=== PATIENT | male | born 1975 | race Caucasian/White ===

== ENCOUNTER 2018-01-29 12:15 | Emergency (ER) | payer OTHER ==
[~2018-01-29] VITALS: Ht 177.8 cm; Wt 106.6 kg
[2018-01-29] MEDS ORDERED: FLUOXETINE HCL40 MG PO (12:21)
[2018-01-29] MEDS ORDERED: COZAAR 25 MG TA25 MG PO (12:21)
[2018-01-29 12:39] LABS: ABSOLUTE BASOPHILS 0.1 thou/uL (0.0-0.2); ABSOLUTE EOSINOPHILS 0.3 thou/uL (0.0-0.7); ABSOLUTE LYMPHOCYTES 1.1 thou/uL (0.8-5.3); ABSOLUTE MONOCYTES 0.6 thou/uL (0.0-1.2); ABSOLUTE NEUTROPHILS 4.4 thou/uL (1.6-8.1); BASOPHILS 0.9 %; EOSINOPHILS 4.4 %; HEMATOCRIT 48.2 % (42.0-52.0); HEMOGLOBIN 16.6 gm/dL (14.0-18.0); LYMPHOCYTES 16.9 %; MCH 33.1 pg (26.0-34.0); MCHC 34.5 g/dL (28.0-37.0); MCV 95.9 fL (80.0-100.0); MONOCYTES 9.9 %; MPV 7.4 fl. (7.2-11.1); NUCLEATED RBCS 0 /100WBC; PLATELET COUNT* 247 thou/uL (150-400); POLYS 67.9 %; RBC 5.02 mil/uL (4.50-6.00); RDW-CV 12.9 % (10.5-14.5); WBC 6.5 thou/uL (4.0-11.0)
[2018-01-29 12:50] LABS: ANION GAP 9 mmol/L (7-16); BUN 7 mg/dL (7-18); CALCIUM 10.5 mg/dL (8.5-10.1); CHLORIDE 98 mmol/L (98-107); CO2 29 mmol/L (21-32); CREATININE 1.1 mg/dL (0.6-1.3); GLUCOSE 108 mg/dL (70-99); POTASSIUM 4.1 mmol/L (3.5-5.1); SODIUM 136 mmol/L (136-145)
[2018-01-29 12:52] LABS: APTT 27.3 Seconds (25.0-31.3); INR 1.1; PROTIME 11.6 Seconds (9.20-11.50)
[2018-01-29 12:57] LABS: ALBUMIN 3.9 g/dL (3.4-5.0); ALKALINE PHOSPHATASE 52 U/L (46-116); LIPASE 130 U/L (73-393); SGOT 54 U/L (15-37); SGPT 91 U/L (30-65); TOTAL BILIRUBIN 0.8 mg/dL (<0.1-1.0); TOTAL PROTEIN 7.2 g/dL (6.4-8.2); TROPONIN-I LEVEL <0.06 ng/mL (<0.06)
--- NOTE | 2018-01-29 14:19 | EKG ---
[place] [address] ELECTROCARDIOGRAM REPORT Name: CARYL AWAD Room: [facility]#: [id number] Admission: 01/29/18 Attend Phys: Discharge: Date of : 75 Report #: [id number] THIS REPORT FOR: //name// [facility] ED Test Date: 2018-01-29 Test Time: 12:21:09 Pat Name: CARYL AWAD Department: Room: Gender: Web Search Evaluator: Calixto CRAIG : 1975 Requested By: Lou Hernandez Order Number: [id number] MD: Param Musa Measurements Intervals [place] Rate: 94 P: 48 ND: 173 QRS: 78 QRSD: 101 T: 17 QT: 342 QTc: 428 Interpretive Statements Sinus rhythm Baseline wander in lead(s) V2 No previous ECG available for comparison Electronically Signed On 01-29-2018 14:19:10 CDT by Param Musa [email or web address] <ELECTRONICALLY SIGNED> By: Param Musa MD, FACC 01/29/18 1419 1221 1221 Param Musa MD, FACC /EPI
[2018-01-29] MEDS ORDERED: PRILOSEC 20 MG20 MG PO (14:46)
[2018-01-29] MEDS ORDERED: CARAFATE 1 GM TA1 GM PO (14:46)
[2018-01-29 15:12] VITALS: BP 121/85
== END 2018-01-29 15:12 | disposition home or self-care (01) ==
LOC: M.ERS 12:15
PROVIDERS: Personal Emergency Response Attendant
DX: R07.89 Other chest pain (principal); I10 Essential (primary) hypertension; F41.9 Anxiety disorder, unspecified

== ENCOUNTER → 2018-03-10 | Outpatient (CLI) | payer OTHER ==
[~2018-03-10] MED LIST: CARAFATE 1 GM TA1 GM PO; COZAAR 25 MG TA25 MG PO; FLUOXETINE HCL40 MG PO; PRILOSEC 20 MG20 MG PO
--- NOTE | 2018-03-10 15:46 | EXE ---
[place] [address] STRESS ECHOCARDIOGRAM Name: LORI AWADWILLIAM Lomax Room: [facility]#: [id number] Admission: 03/10/18 Attend Phys: Chuy Interiano, Discharge: Date of : 75 Date of Service: 03/10/18 1545 Report #: [id number] THIS REPORT FOR: //name// APPROVED REPORT Study performed: 03/10/2018 11:14:23 Exam: Stress Echocardiogram Indication: Chest pain , Dyspnea Patient Location: Out-Patient Stress Nurse: Chelsey Castillo RN Supervising Physician: Param Musa MD Ht: 5 ft 10 in HR: 85 bpm BP: 129/84 mmHg Medical History Cardiac Risk Factors: Tobacco History (Former), FHX of CAD Procedure The patient underwent an Exercise Stress Test using the Misha Protocol. Blood pressure, heart rate, and EKG were monitored. An Echocardiogram was performed by live truck technician in four stages in quad fashion. At peak stress, four selected images were obtained and placed side by side with resting images for comparison. Stress Test Details Stress Test: Exercise stress testing was performed using a Misha protocol. HR Resting HR: 85 bpm Max Heart Rate (APMHR): 178 bpm Max HR Achieved: 162 bpm Target HR (85% APMHR): 151 bpm % of APMHR: 91 Recovery HR: 104 bpm HR response to stress: Normal HR response to stress BP Resting BP: 129/84 mmHg Max BP: 201/93 mmHg Recovery BP: 145/85 mmHg BP response to stress: Normal blood pressure response to stress. ECG Resting ECG: Sinus Rhythm [address] [address] STRESS ECHOCARDIOGRAM Name: CARYL AWAD Room: [facility]#: [id number] Admission: 03/10/18 Attend Phys: Chuy Interiano, Discharge: Date of : 75 Date of Service: 03/10/18 1545 Report #: [id number] Stress ECG: Sinus Tachycardia ST Change: Normal Maximum ST Deviation: 0 mm Arrhythmia: None Recovery ECG: Sinus Rhythm Recovery ST Change: Normal Recovery ST Deviation: 0 mm Recovery Arrhythmia: None Clinical Reason for Termination: Completed protocol Exercise duration: 7 min 50 sec Highest Stage Achieved: Stage 3: 3.4 mph at 14% grade. Exercise capacity: 9.87 METs Pre-Stress Echo The resting Echocardiogram showed normal left ventricular contractility with an estimated Ejection Fraction of about 55-60%. Post-Stress Echo The stress Echocardiogram showed normal left ventricular contractility with an estimated Ejection Fraction of about >70%. Conclusion Clinical Response: Non-ischemic Exercise Capacity: Average Stress ECG Response: Non-ischemic Stress Echo Images: Non-ischemic low risk stress echo for future cardiac events Other Information Study Quality: Good <Conclusion> low risk stress echo for future cardiac events <ELECTRONICALLY SIGNED> By: Param Musa MD, FACC 03/10/18 1545 1545 1545 Param Musa MD, FACC /INF
== END ==
LOC: M.CRD 03-06 11:00
DX: R07.2 Precordial pain (principal)

== ENCOUNTER → 2021-02-20 | Outpatient (CLI) | payer OTHER | LOC: M.RAD 09:36 | PROVIDERS: ATTEND Surgery | DX: K44.9 Diaphragmatic hernia without obstruction or gangrene (principal); M41.84 Other forms of scoliosis, thoracic region ==